=== PATIENT | male | born 1945 | race Asian ===

== ENCOUNTER 2017-05-07 23:57 | Emergency (ER) | payer MEDICARE, OTHER ==
[~2017-05-07] VITALS: Ht 167.6 cm; Wt 63.6 kg
[2017-05-08] VITALS: Ht 167.6 cm; Wt 63.6 kg
[2017-05-08] MEDS ORDERED: ONDANSETRON 4 MG INJ IV STA (00:19)
[2017-05-08] MEDS ORDERED: SOD CHLORIDE 0.9% 500 ML IV STA (00:19)
--- NOTE | 2017-05-08 00:58 | RADRPT ---
PROCEDURE: Portable chest x-ray. CLINICAL INDICATION: 72 years of age, male. Trauma. TECHNIQUE: Portable AP view of the chest. COMPARISON: None available. FINDINGS: Cardiomediastinal contours are normal. Mild bibasilar lung opacities may represent atelectasis, aspiration or pneumonia. Negative for pleural effusion or pneumothorax. No acute bony abnormality. IMPRESSION: Mild bibasilar lung opacities may represent atelectasis, aspiration or pneumonia. Negative for evidence of acute traumatic injury to the chest. RPTAT: HCTS Physician Paulina Date Time Electronically viewed and signed by Physician Paulina on 05/08/2017 00:58 CS/
--- NOTE | 2017-05-08 01:10 | ERD ---
ER Documentation Chief Complaint Date/Time DATE: 05/08/17 TIME: 01:06 Chief Complaint ETOH HPI 72-year-old man brought in by EMS for alcohol intoxication and vomiting at home. who is at the bedside states there was a birthday constitution party tonight and he overdid it with alcohol, patient on multiple episodes of clear nonbloody nonbilious emesis at home and en route. He had no loss of consciousness, no complaints of chest pain or shortness of breath, no diarrhea. ROS All systems reviewed and are negative except as per history of present illness. Medications Home Meds Active Scripts Mag Hydrox/Al Hydrox/Simeth (Maalox Advanced Suspension) 355 Ml Oral.susp, 2 TSP PO TID for PAIN, #24 OZ Prov:MOE CABA MD 05/08/17 Levofloxacin* (Levaquin*) 500 Mg Tablet, 500 MG PO DAILY for 5 Days, TAB Prov:MOE CABA MD 05/08/17 Ondansetron Hcl* (Zofran*) 4 Mg Tablet, 4 MG PO Q8H Y for NAUSEA AND/OR VOMITING , #12 TAB Prov:MOE CABA MD 05/08/17 Allergies Allergies: Coded Allergies: No Known Allergy (Unverified , 05/08/17) PMhx/Soc Alcoholism History of Surgery: No Anesthesia Reaction: No Hx Neurological Disorder: No Hx Respiratory Disorders: No Hx Cardiac Disorders: Yes (HYPERTENSION) Hx Psychiatric Problems: No Hx Miscellaneous Medical Probl: Yes (DM) Hx Alcohol Use: Yes (WINE EVERY DAY) Hx Substance Use: No Hx Tobacco Use: No Smoking Status: Never smoker FmHx Family History: No diabetes Physical Exam Vitals Vital Signs Date Time Temp Pulse Resp B/P Pulse Ox O2 Delivery O2 Flow Rate FiO2 05/08/17 00:10 97.6 73 15 121/60 100 Room Air 05/08/17 00:00 97.6 73 15 121/60 100 Physical Exam GENERAL: Well-developed, well-nourished, well-hydrated, appears intoxicated, afebrile HEENT: Moist mucous membranes, pink conjunctiva, no cervical spine tenderness or step-off deformities, no goiter, no jaundice or icterus, extraocular movements intact without pain. No submandibular induration, and no pharyngeal erythema NEURO: Alert and oriented 3, cranial nerves II through XII intact bilaterally, pupils equal round reactive to light, no focal deficits or facial asymmetry, sensation intact distally Strength 5/5 in upper and lower extremities bilaterally CARDIAC: Regular rate and rhythm, no murmurs rubs or gallops LUNGS: Clear bilaterally no wheezing crackles or stridor ABDOMEN: Soft nontender, no guarding, no rigidity, no rebound, no psoas sign no obturator sign. Normoactive bowel sounds SKIN: Warm and dry to touch, no abrasions, contusions, or hematomas, no lacerations, no ecchymosis, no target lesions, and without ulcers EXTREMITIES: No clubbing cyanosis or edema, calves are bilaterally symmetrical, no Homans sign, no popliteal cord sign. Distal pulses equal and bilateral PSYCH: Normal affect without agitation or irritability Result Diagram: 05/08/1710405/08/17104 Results 24 hrs Laboratory Tests Test 05/08/17 01:05 White Blood Count 8.410^3/ul Red Blood Count 4.6010^6/ul Hemoglobin 13.9g/dl Hematocrit 42.3% Mean Corpuscular Volume 92.0fl Mean Corpuscular Hemoglobin 30.2pg Mean Corpuscular Hemoglobin Concent 32.9g/dl Red Cell Distribution Width 12.5% Platelet Count 17119^3/UL Mean Platelet Volume 9.9fl Neutrophils % 46.2% Lymphocytes % 41.6% Monocytes % 8.2% Eosinophils % 2.7% Basophils % 0.7% Nucleated Red Blood Cells % 0.0/100WBC Neutrophils # (Manual) 3.910^3/ul Lymphocytes # 3.510^3/ul Monocytes # 0.710^3/ul Eosinophils # 0.210^3/ul Basophils # 0.110^3/ul Nucleated Red Blood Cells # 0.010^3/ul Sodium Level 144mmol/L Potassium Level 3.3mmol/L Chloride Level 106mmol/L Carbon Dioxide Level 24mmol/L Anion Gap 17 Blood Urea Nitrogen 16mg/dl Creatinine 0.94mg/dl Glucose Level 135mg/dl Calcium Level 8.6mg/dl Total Bilirubin 0.2mg/dl Direct Bilirubin 0.00mg/dl Indirect Bilirubin 0.2mg/dl Aspartate Amino Transf (AST/SGOT) 136IU/L Alanine Aminotransferase (ALT/SGPT) 78IU/L Alkaline Phosphatase 98IU/L Troponin I < 0.012ng/ml Total Protein 8.1g/dl Albumin 4.7g/dl Globulin 3.40g/dl Albumin/Globulin Ratio 1.38 Lipase 119U/L Ethyl Alcohol Level 281.0mg/dl Current Medications Medications (Trade) Dose Ordered Sig/Stella Route PRN Reason Start Time Stop Time Status Last Admin Dose Admin Sodium Chloride (NS) 500 ml @ 500 mls/hr Q1H STAT IV 05/08/17 00:19 05/08/17 01:18 DC 05/08/17 01:16 Ondansetron HCl (Zofran Inj) 4 mg ONCE STAT IV 05/08/17 00:19 05/08/17 00:22 DC 05/08/17 01:16 Potassium Chloride (Klor-Con 20) 40 meq ONCE STAT PO 05/08/17 01:48 05/08/17 02:00 DC Procedures/MDM IV line was established patient was placed on laboratory monitor rhythm strip. Revealed a sinus rhythm at about 80 bpm with upright P and T waves. Patient was afebrile. I administered 500 mL normal saline intravenously and Zofran 4 mg IV with good response. Blood sugar was checked and was normal. EKG performed, read by me revealed a normal sinus rhythm 85 bpm, normal axis, with a right ventricular conduction delay, no concerning ST elevations or depressions noted. CT scan of the brain was performed that was negative for acute bleed mass or shift. Chest X-ray 1V Interpreted by me: Soft Tissue: No acute abnormalities Bones: No acute abnormalities Mediastinum/Cardiac Silhouette/Lungs: No acute abnormalities CBC was unremarkable, electrolytes revealed hypokalemia, liver function tests revealed mild transaminitis otherwise unremarkable, troponin was negative.Ethanol level was elevated at 281. I provided oral potassium supplementation for hypokalemia. Patient's neurologic examination was repeated by me and remains normal, he is asleep but arousable and has no focal deficits or facial asymmetry. His vital signs are normal and he will be discharged for outpatient management and to follow-up with his PMD. Patient may have suffered mild aspiration given the multiple episodes of vomiting he had today especially because he was intoxicated so I will treat him prophylactically with antibiotics 5 days. Differential diagnoses considered, included but not limited to acute coronary syndrome, pulmonary embolism, aortic dissection, abdominal aortic aneurysm, sepsis, stroke, meningitis, encephalitis, pneumonia, appendicitis, cholecystitis , bowel obstruction, pyelonephritis, nephrolithiasis, cystitis, as well as metabolic, hematologic, and electrolyte abnormalities. As well as abscess, cellulitis, fractures, and dislocations. Patient feels much better at this time, and vital signs are normal, symptoms have improved. I did give strict instructions to return to the ED if symptoms continue or worsen, patient will otherwise follow-up with primary care physician. Patient understood instructions and agreed to plan. Disclaimer: Inadvertent spelling and grammatical errors are likely due to EHR/ dictation software use and do not reflect on the overall quality of patient care. Also, please note that the electronic time recorded on this note does not necessarily reflect the actual time of the patient encounter. Departure Diagnosis: Primary Impression: Alcoholic intoxication Complication of substance-induced condition: with delirium Qualified Code: F10.921 - Alcohol intoxication with delirium Additional Impression: Vomiting Vomiting type: unspecified Vomiting Intractability: non-intractable Nausea presence: with nausea Qualified Code: R11.2 - Non-intractable vomiting with nausea, unspecified vomiting type Condition: MOE Reyes MD May 08, 2017 01:10
[2017-05-08 01:23] LABS: BASOPHIL # 0.1 10^3/ul (0.0-0.1); BASOPHILS % 0.7 % (0.0-2.0); EOSINOPHILS # 0.2 10^3/ul (0.0-0.5); EOSINOPHILS % 2.7 % (0.0-7.0); HEMATOCRIT 42.3 % (42.0-52.0); HEMOGLOBIN 13.9 g/dl (14.0-18.0); LYMPHOCYTES # 3.5 10^3/ul (0.8-2.9); LYMPHOCYTES % 41.6 % (15.0-51.0); MEAN CORPUSCULAR HEMOGLOBIN 30.2 pg (29.0-33.0); MEAN CORPUSCULAR HGB CONC 32.9 g/dl (32.0-37.0); MEAN PLATELET VOLUME 9.9 fl (7.4-10.4); MONOCYTE # 0.7 10^3/ul (0.3-0.9); MONOCYTES % 8.2 % (0.0-11.0); NEUTROPHILS % 46.2 % (39.0-77.0); PLATELET COUNT 275 10^3/UL (140-415); RED CELL DISTRIBUTION WIDTH 12.5 % (11.5-14.5); WHITE BLOOD COUNT 8.4 10^3/ul (4.8-10.8)
[2017-05-08 01:39] LABS: ALANINE AMINOTRANSFERASE 78 IU/L (13-69); ALBUMIN 4.7 g/dl (3.3-4.9); ALBUMIN/GLOBULIN RATIO 1.38; ALKALINE PHOSPHATASE 98 IU/L (42-121); ANION GAP 17 (8-16); ASPARTATE AMINO TRANSFERASE 136 IU/L (15-46); BILIRUBIN,INDIRECT 0.2 mg/dl (0-1.1); BILIRUBIN,TOTAL 0.2 mg/dl (0.2-1.3); BLOOD UREA NITROGEN 16 mg/dl (7-20); CALCIUM 8.6 mg/dl (8.4-10.2); CARBON DIOXIDE 24 mmol/L (21-31); CHLORIDE 106 mmol/L (97-110); CREATININE 0.94 mg/dl (0.61-1.24); GLUCOSE 135 mg/dl (70-220); POTASSIUM 3.3 mmol/L (3.5-5.1); SODIUM 144 mmol/L (135-144); TOTAL PROTEIN 8.1 g/dl (6.1-8.1)
[2017-05-08] MEDS ORDERED: POTASSIUM CHLORIDE (SR) 20 MEQ TAB PO STA (01:48)
[2017-05-08 01:51] LABS: TROPONIN-I < 0.012 ng/ml (0.00-0.12)
[2017-05-08] MEDS ORDERED: LEVO500T72 PO (02:04)
[2017-05-08] MEDS ORDERED: ONDA4TAB8 PO (02:04)
[2017-05-08] MEDS ORDERED: MAG355OR14 PO (02:04)
[2017-05-08 02:36] VITALS: BP 102/57; PULSE 75; RESP 16; TEMP 97.7
--- NOTE | 2017-05-08 08:35 | RADRPT ---
PROCEDURE: CT Brain without contrast. CLINICAL INDICATION: Headaches status post trauma TECHNIQUE: A CT of the brain was performed on a GE [id number] 64-slice CT scanner utilizing axial imaging from the skull base through the vertex without IV contrast. Multiplanar reformatted images were made. Images were reviewed on a PACS workstation. The CTDIvol is 43.68 mGy and the DLP is 720 .23 mGycm. One of the following 3 does reduction techniques were used during this CT examination: 1) Automated exposure control 2) Adjustment of the mA +/- kV according to patient size or 3) Use of iterative reconstruction technique COMPARISON: None available FINDINGS: There is no intracranial hemorrhage, mass effect, or midline shift. No extra-axial fluid collection is seen. The ventricles and sulci are age appropriate. Mild diffuse volume loss is present. Conflue nt decreased attenuation is present in the bilateral subcortical white matter, bilateral centrum dany iovale and bilateral periventricular white matter compatible with mild chronic microvascular ischemi c disease. Mild vascular calcifications are present of the intracranial internal carotid arteries. The visualized scalp and calvarium are normal. The bilateral orbits are normal. The bilateral parana yeimi sinuses, mastoid air cells, and middle ear cavities are clear. IMPRESSION: 1. No evidence of acute intracranial hemorrhage, infarcts, or acute intracranial pathology. 2. Mild chronic microvascular ischemic disease and diffuse volume loss. 3. Mild atherosclerotic vascular disease RPTAT: HDC .Teresita Suazo MD, MD Date Time Electronically viewed and signed by .Teresita Suazo MD, MD on 05/08/2017 08:35 .C/
== END 2017-05-08 03:55 | disposition home or self-care (01) ==
LOC: E/R 23:57
DX: F10.921 Alcohol use, unspecified with intoxication delirium (principal); R11.2 Nausea with vomiting, unspecified; E11.9 Type 2 diabetes mellitus without complications; I10 Essential (primary) hypertension; R51 Headache
CPT/HCPCS: 36415; 70450; 71010; 80053; 80306; 82962; 83690; 84484; 85025; 93005; 96374; 99285; J2405; J7040